=== PATIENT | female | born 1965 | race Caucasian/White ===

== ENCOUNTER → 2025-07-02 | Day surgery (SDC) | payer MEDICARE ==
[2025-06-27 14:36] LABS: MEAN PLATELET VOLUME 8.3 FL (7.4-10.4); PRE OP HEMATOCRIT 47.1 % (35.0-45.0); PRE OP HEMOGLOBIN 15.9 g/dL (12.0-16.0); PRE OP PLATELET COUNT 290 X10'3 (140-440); PRE OP WHITE BLOOD COUNT 8.5 10'3 (4.8-10.8); RED CELL DISTRIBUTION WIDTH 13.5 % (11.5-14.5)
--- NOTE | 2025-06-27 14:42 | ELECTROCARDIOGRAPH REPORT ---
[facility] Test Date: 2025-06-27 Test Time: 14:40:13 Pat Name: NOÉ BERTRAND Department[id number] Room: Gender: F Wheat Farmer: ROSIE : 1965 Requested By: KELLY MELGOZA Order Number: [id number] Reading MD: Dr. Rene Zaidi Measurements Intervals [place] Rate: 64 P: -23 NM: 146 QRS: 36 QRSD: 94 T: 52 QT: 423 QTc: 437 Interpretive Statements Sinus rhythm Electronically Signed On 06-30-2025 7:11:[address] Rene Zaidi Please click the below link to view image of tracing.
[2025-06-27 14:43] LABS: CREATININE 1.27 MG/DL (0.40-0.90); PRE OP ALT 60 U/L (30-65); PRE OP ANION GAP 6 (8-16); PRE OP AST 77 U/L (10-37); PRE OP BILIRUB, TOTAL 0.4 MG/DL (0.0-1.0); PRE OP GLUCOSE 117 MG/DL (70-104); PRE OP POTASSIUM 4.7 MMOL/L (3.4-5.1); PRE OP SODIUM 140 MMOL/L (135-145); TOTAL CARBON DIOXIDE 31.9 MMOL/L (24-32); eGFR 43 ML/MIN
[2025-07-02] VITALS (12 sets, daily range): BP systolic 126–169; BP diastolic 84–110; PULSE 61–72; RESP 7–16; TEMP 98; O2SAT 96–100
[~2025-07-02] VITALS: Ht 160 cm; Wt 94.0 kg
[~2025-07-02] MED LIST: 0.9 % SODIUM CHLORIDE 10 ML VIAL ONE; ATEN50TA PO; BACI1TAB25 PO; BENA40TA73 PO; BUPIVACAINE liposomal/PF 13.3 MG/ML 10mL vial IM ONE; BUPIVAcaine/PF 2.5mg/ml (0.25%) 10ml vial ONE; BUPR-114 PO; BUSP15TA7 PO; FLUT16SP2 BOTHNARES; HYDROmorphone/PF 0.2 MG/ML SYRINGE IV PRN; LIDOcaine 1% (10mg/ml)w/preservative inj. 20ml MDV ONE; LIDOcaine 2% (20mg/ml) 5ml vial ONE; OMEP20CA16 PO; P EP PO; PROP10TA10 PO; acetaminophen 1,000mg/100ml IV 100 ML IV PRN; dexamethasone sod phosphate 4mg/ml inj. ONE; ePHEDrine 50MG/ML INJ. ONE; fentaNYL /PF 50mcg/ml 5ml ampule ONE; labetalol 20mg/4ml (5mg/ml) syringe IV PRN; methylene blue (5mg/ml) 50mg/10ml ampul IV ONE; midazolam 1 mg/ML 2ml injection ONE; ondansetron/PF 4mg/2ml inj IV PRN; ondansetron/PF 4mg/2ml inj ONE; propofol inj 20 ML IV ONE; ringers solution, lacted 1,000 ML IV SCH
[2025-07-02] MEDS: ceFAZolin 2gm/dext,iso 50mL 50 ML IV ONE (06:15)
[2025-07-02] MEDS: DOCUMENT DATE & TIME OF BETA-BLOCKER PO ONE (06:15)
[2025-07-02] MEDS: methylene blue (5mg/ml) 50mg/10ml ampul IV ONE (08:38)
[2025-07-02] MEDS: LIDOcaine 1% 30ml preserv. free vial IJ ONE (08:38)
[2025-07-02] MEDS: BUPIVAcaine/PF 2.5mg/ml (0.25%) 10ml vial IJ ONE (08:39)
[2025-07-02] MEDS: BUPIVACAINE liposomal/PF 13.3 MG/ML 10mL vial IM ONE (08:40)
[2025-07-02] MEDS: hydrALAZINE 20mg/ml inj. IV PRN (10:01)
--- NOTE | 2025-07-02 10:01 | OPERATIVE REPORT ---
Operative Report Providers to CC CC: KELLY MELGOZA DO ~ Date of Procedure: Jul 02, 2025 Pre-Operative Diagnosis: right breast cancer Post-Operative Diagnosis SAME as PRE-Op Procedure Performed -right breast wireless localized lumpectomy -right axillary sentinel node biopsy -reading of specimen radiograph Surgeon: Dr. Kelly Melgoza Va Underwriter Chely Zhang PA-C Anesthesiologist: Xenia Garcia Type of Anesthesia: General Findings: right axillary sentinel node Complications None Prosthetics\Implants used: None Estimated Blood Loss: Less than 10 ml Specimen Removed: 1. right breast wirelesss localized lumpectomy 2. right lateral margin,suture padilla final margin 3. right axillary sentinel node biopsy Description of Procedure: Juliette is a 60-year-old female who was seen and evaluated in the office by myself in consultation regarding new diagnosis of right breast cancer. She had an extensive workup and decided on breast conservation. She had her nuclear medicine injection this morning and was evaluated in the preoperative holding area by myself and the anesthesiologist. She had an IV placed, SCDs to lower extremities, and antibiotics hanging at the bedside which was administered prior to the cut of surgery. I marked the right breast with my initials. She was taken to the OR and placed on the table in supine position with the arms extended. General anesthesia was administered with an LMA. 3 mL of methylene blue dye was injected subareolar at 9:00 and massaged for 4 minutes. The gamma probe was used to identify the hot spot in the breast and in the axilla that was marked as well. The pintuition probe was scanned on the breast in the upper outer quadrant 10:00 area approximately 10 cm from the nipple and a signal was detected in the skin was marked. A proposed incision was made with a marking pen and 1% lidocaine was injected at the site. The incision was made with a 15 blade and extended through the deep dermal layer with the cutting on the cautery. I used the pintuition probe to guide my dissection in the upper outer quadrant. Stoll retractors were placed in the cavity and I dissected around the signal circumferentially and deep to it. The specimen was completely excised and removed from the cavity and oriented with short stitch superior, long suture lateral, and double suture deep. The specimen was placed in the specimen radiograph board and into the fact that trauma seen. The marker and clip were noted in the specimen. Based on the imaging and decided to take an additional lateral margin. I excised the lateral margin suture padilla final margin. Both specimens were placed in formalin off the field in separate containers. The cavity was irrigated and hemostasis was achieved with Bovie electrocautery. I turned my attention to the right axillary sentinel lymph node biopsy. I made a proposed incision with a marking pen. I injected the area 1% lidocaine. I made my incision with a 15 blade. Once I dissected through the deep dermal layer into the axillary fascia I used a Stoll retractors for visualization and scanned the axilla with the gamma probe. A hot signal was detected in the deep axillary space. I grafts the lymph node with a tonsil clamp and completely excised with the LigaSure. It was removed from the cavity and the count was noted outside of the cavity and was not blue. It was placed off the field in formalin. The cavity was irrigated and hemostasis was achieved with Bovie electrocautery the axillary fascia was approximated with 3-0 Vicryl sutures. The skin was closed with 3-0 Vicryl suture and a 4-0 Monocryl running subcuticular stitch. The breast cavity was approximated with 3-0 manish Vicryl sutures. The skin was closed with 3-0 Vicryl suture and 4-0 Monocryl running subcuticular stitch. The Prineo Dermabond closure system was placed in the axil dario incision and regular Dermabond over the breast incision. 0.25% Marcaine was injected at both sites. Pressure dressings and sterile dressings were placed over both incisions. A breast binder was placed and the patient was taken to recovery in stable condition without complication. All needle and sponge counts were correct. Counts repoted as correct: Yes KELLY MELGOZA DO Jul 02, 2025 10:01
[2025-07-02] MEDS: morphine 4 MG/ML inj SYRINge IV PRN (10:04)
[2025-07-02] MEDS: HYDROmorphone/PF 0.2 MG/ML SYRINGE IV PRN (10:25)
== END | disposition home or self-care (01) ==
LOC: PAS 05:54
PROVIDERS: ATTEND Surgery
DX: D05.11 Intraductal carcinoma in situ of right breast (principal); I10 Essential (primary) hypertension; F41.9 Anxiety disorder, unspecified; F32.A Depression, unspecified; E66.9 Obesity, unspecified; Z79.899 Other long term (current) drug therapy; Z90.710 Acquired absence of both cervix and uterus; Z96.652 Presence of left artificial knee joint; Z98.890 Other specified postprocedural states; Z68.36 Body mass index [BMI] 36.0-36.9, adult
CPT/HCPCS: 19301; 36415; 38525; 38900; 76098; 80053; 82948; 85025; 88307; 88342; 93005; A4215; A4615; A4618; A6253; A6258; A7000; J0360; J0666; J1100; J1171; J2003; J2270; J2405; J2704; J3010; J3490; J7030; J7120; Q9968; Z7506; Z7508; Z7512; Z7610